=== PATIENT | female | born 1945 | race Asian ===

== ENCOUNTER → 2022-07-30 | Outpatient (CLI) | payer MEDICARE, OTHER ==
[~2022-07-30] MED LIST: IOHEXOL-300 100 ML BOTTLE ONE
== END | disposition home or self-care (01) ==
LOC: CT 09:16
PROVIDERS: ATTEND Internal Medicine Gastroenterology
DX: C18.7 Malignant neoplasm of sigmoid colon (principal); K80.20 Calculus of gallbladder without cholecystitis without obstruction; K76.0 Fatty (change of) liver, not elsewhere classified; K76.89 Other specified diseases of liver; I51.7 Cardiomegaly
CPT/HCPCS: 74177; Q9967

== ENCOUNTER 2022-08-15 19:05 | Emergency (ER) | payer MEDICARE, OTHER ==
[~2022-08-15] VITALS: Ht 152.4 cm; Wt 42.0 kg
[~2022-08-15 19:05] MED LIST changes: +AMLO5TAB88 PO; +ASPI-1497 PO; +CALC-1042 PO; -IOHEXOL-300 100 ML BOTTLE ONE; +LOSA100T32 PO
[2022-08-15 23:56] LABS: BASOPHILS % 0.6 % (0.0-2.0); EOSINOPHILS % 0.1 % (0.0-5.0); HEMATOCRIT. 31.5 % (36.0-48.0); HEMOGLOBIN. 10.1 g/dL (12.0-16.0); LYMPHOCYTES % 9.3 % (20.0-50.0); MEAN CORPUSCULAR HEMOGLOBIN 27.6 pg (28.0-32.0); MEAN CORPUSCULAR VOLUME 86.2 fL (81.0-99.0); MONOCYTES % 5.2 % (2.0-8.0); NEUTROPHILS % 84.8 % (40.0-76.0); PLATELET 638 x1000/uL (130-400); RED BLOOD CELL COUNT 3.65 mill/uL (4.2-5.4); RED CELL DISTRIBUTION WIDTH 14.7 % (11.6-14.6)
[2022-08-16 00:10] LABS: CHLORIDE 108 mEq/L (98-107)
[2022-08-16 03:24] VITALS: BP 122/75
== END 2022-08-16 03:27 | disposition home or self-care (01) ==
LOC: ER 19:05
DX: G89.18 Other acute postprocedural pain (principal); R10.84 Generalized abdominal pain; I10 Essential (primary) hypertension; Z85.9 Personal history of malignant neoplasm, unspecified; Z98.890 Other specified postprocedural states; Z79.82 Long term (current) use of aspirin; Z88.5 Allergy status to narcotic agent
CPT/HCPCS: 36415; 74176; 80053; 83605; 85025; 99284

== ENCOUNTER → 2022-12-23 | Outpatient (CLI) | payer MEDICARE, OTHER ==
[~2022-12-23] MED LIST changes: +BARIUM SULFATE 450ML ORAL SUSP ONE; +IOHEXOL-300 100 ML BOTTLE ONE; -LOSA100T32 PO; +LOSA100T33 PO
== END | disposition home or self-care (01) ==
LOC: CT 11:40
PROVIDERS: ATTEND Internal Medicine Hematology & Oncology
DX: C18.7 Malignant neoplasm of sigmoid colon (principal); K76.0 Fatty (change of) liver, not elsewhere classified; K80.20 Calculus of gallbladder without cholecystitis without obstruction; K76.89 Other specified diseases of liver; R59.9 Enlarged lymph nodes, unspecified
CPT/HCPCS: 71260; 74177; Q9967